=== PATIENT | female | born 1955 | race Caucasian/White ===

== ENCOUNTER 2021-12-04 11:28 | Emergency (ER) | payer OTHER ==
[~2021-12-04] VITALS: Ht 160 cm; Wt 86.2 kg
--- NOTE | 2021-12-04 14:59 | NUR ---
Patient discharged to home in stable condition. Written and verbal after care instructions given. Patient verbalizes understanding of instructions. Stressed follow up or return to ER for worsening s/s.
== END 2021-12-04 15:00 | disposition home or self-care (01) ==
LOC: ER 11:28
DX: M79.662 Pain in left lower leg (principal)
CPT/HCPCS: A4663